=== PATIENT | male | born 1995 | race Caucasian/White ===

== ENCOUNTER 2019-12-10 17:33 | Observation (INO) ==
[2019-12-10] MEDS ORDERED: Morphine 4 MG/ML VIAL (1 ml) IV ONE (18:10)
[2019-12-10] MEDS ORDERED: NS 0.9% 1000 ml BAG 1,000 ML IV SCH (18:45)
[2019-12-10] MEDS ORDERED: Famotidine IV 10 MG/ML 2 ml VIAL (20 mg) IV ONE (19:07)
[2019-12-10] MEDS ORDERED: Midazolam 2 mg/2 ml VIAL 1 mg/ml 2 ml VIAL (2 mg) ONE ×2 (19:21)
[2019-12-10] MEDS ORDERED: Propofol 10 MG/ML 20 ML BTL ONE (19:22)
[2019-12-10] MEDS ORDERED: fentaNYL 100 mcg/2 ml 50 MCG/ML VIAL ONE ×2 (19:22→20:29)
[2019-12-10] MEDS ORDERED: Dexamethasone IV 4 MG/ML VIAL 1 ml VIAL ONE ×2 (19:22→20:31)
[2019-12-10] MEDS ORDERED: Lidocaine 2% PF 5 ML VIAL ONE (19:22)
[2019-12-10] MEDS ORDERED: Rocuronium 50 mg VIAL 10 mg/ml 5 ml VIAL (50 mg) ONE (19:22)
[2019-12-10] MEDS ORDERED: Bupivacaine 0.25% SDV 30 ML ONE (19:23)
[2019-12-10] MEDS ORDERED: Lidocaine 1% VIAL 10 MG/ML VIAL ONE (19:23)
[2019-12-10] MEDS ORDERED: ceFAZolin 2 GM PREMIX 2 GM/50 ML BAG ONE (19:24)
[2019-12-10] MEDS ORDERED: Famotidine IV 10 MG/ML 2 ml VIAL (20 mg) ONE (19:50)
[2019-12-10] MEDS ORDERED: Lactated Ringers 1000 ml BAG 1,000 ML IV SCH (20:00)
[2019-12-10] MEDS ORDERED: Acetaminophen IV 1 GM/100ML 100 ML ONE (20:13)
[2019-12-10] MEDS ORDERED: Lactulose 30 ml UDC PO PRN (21:32)
[2019-12-10] MEDS ORDERED: diPHENhydraMINE IV 50 MG/ML 1 ml VIAL (BENADRYL) IV PRN (21:32)
[2019-12-10] MEDS ORDERED: oxyCODONE/Acetamin 5/325 mg TAB PO PRN (21:32)
[2019-12-10] MEDS ORDERED: Magnesium Hydroxide LIQ 30 ML UDC PO PRN (21:32)
[2019-12-10] MEDS ORDERED: Ondansetron 4 mg VIAL 2 MG/ML 2 ml VIAL IV PRN ×2 (21:32→22:01)
[2019-12-10] MEDS ORDERED: Ondansetron ODT 4 mg TAB 4 MG TAB PO PRN (21:32)
[2019-12-10] MEDS ORDERED: diPHENhydraMINE 25 mg TAB PO PRN (21:32)
[2019-12-10] MEDS ORDERED: fentaNYL 100 mcg/2 ml 50 MCG/ML VIAL IV PRN (22:01)
[2019-12-10] MEDS ORDERED: Levalbuterol 0.63MG/3ML NEB UNIT OF USE INH PRN (22:01)
[2019-12-10] MEDS ORDERED: HYDROmorphone 1 MG/1 ML SYRINGE IV PRN (22:01)
[2019-12-10] MEDS ORDERED: Naloxone 0.4 mg VIAL 0.4 mg/ml 1 ml VIAL IV PRN (22:01)
[2019-12-10] MEDS ORDERED: DiMENhydriNATE IV 50 mg/ml 1 ml VIAL IV PUSH PRN (22:01)
[2019-12-11] MEDS ORDERED: Polyethylene Glycol 3350 17 GM PACKET PO PRN (00:01)
[2019-12-11] MEDS: Lactated Ringers 1000 ml BAG 1,000 ML IV SCH ×2 (00:14→11:03)
[2019-12-11] MEDS: Morphine 2 MG/ML SYRINGE IV PRN ×3 (01:21→15:56)
[2019-12-11] MEDS: ceFAZolin 1 GM ADVAN 1 GM in NS 0.9% 50 ML 50 ML IVPB SCH ×3 (04:02→19:32)
[2019-12-11] MEDS: Vitamin THERAPEUTIC TAB PO SCH (08:55)
[2019-12-11] MEDS: Magnesium Hydroxide LIQ 30 ML UDC PO SCH ×2 (08:56→20:34)
[2019-12-11] MEDS: oxyCODONE/Acetamin 5/325 mg TAB PO PRN ×3 (10:19→20:34)
[2019-12-11] MEDS ORDERED: Nicotine PATCH 21 MG/24 HR PATCH TRANSDERM PRN (19:00)
[2019-12-11] MEDS ORDERED: Nicotine PATCH 21 MG/24 HR PATCH TRANSDERM SCH (19:00)
[2019-12-12] MEDS: ceFAZolin 1 GM ADVAN 1 GM in NS 0.9% 50 ML 50 ML IVPB SCH (03:38)
[2019-12-12] MEDS: oxyCODONE/Acetamin 5/325 mg TAB PO PRN ×2 (03:39→10:40)
[2019-12-12] MEDS: Vitamin THERAPEUTIC TAB PO SCH (07:55)
[2019-12-12] MEDS: Magnesium Hydroxide LIQ 30 ML UDC PO SCH (08:45)
[2019-12-12 11:46] VITALS: BP 115/67
[2019-12-12 12:12] LABS: Albumin 3.8 g/dL (3.2-5.2); Albumin/Globulin Ratio 1.6 (1-3); BUN/Creatinine Ratio 15.6 (8-20); Calcium 9.2 mg/dL (8.6-10.3); EGFR African American 123.4 (>60); Globulin 2.4 g/dL (2-4); Potassium 3.9 mmol/L (3.5-5.0); Total Bilirubin 0.4 mg/dL (0.2-1.0); Total Protein 6.2 g/dL (6.4-8.9)
[2019-12-12 12:17] LABS: Myoglobin 14.5 ng/mL (17.4-105.7)
== END 2019-12-12 13:20 | disposition home or self-care (01) ==
LOC: SSU 17:33 → ED 17:33 → SSU 19:08
PROVIDERS: ADMIT Orthopaedic Surgery; ATTEND Orthopaedic Surgery